=== PATIENT | male | born 1960 | race Caucasian/White ===

== ENCOUNTER 2018-03-29 09:58 | Outpatient (CLI) | payer OTHER, SELFPAY ==
[2018-03-29 13:03] LABS: Cholesterol 254 mg/dL (50-200); Glucose 94 mg/dL (70-100); HDL Cholesterol 45 mg/dL (40-60); LDL CHOLESTEROL 176 mg/dL (<100); Triglyceride 156 mg/dL (30-150)
== END 2018-03-29 10:18 ==
PROVIDERS: PCP Family Medicine; Visit Provider Family Medicine
DX: I25.10 Atherosclerotic heart disease of native coronary artery without angina pectoris (principal)
CPT/HCPCS: 36415; 80061; 82947; 83721

== ENCOUNTER 2018-04-17 09:12 | Outpatient (CLI) | payer OTHER, SELFPAY ==
--- NOTE | 2018-04-17 09:08 | DI.RAD_ITS ---
SYMPTOM/DIAGNOSIS: PAIN RIGHT HAND: Three views. No acute fracture or dislocation is seen. There is minimal spurring seen at the DIP joint of the right little finger suggesting osteoarthritis. The joint spaces otherwise appear well maintained. No radiopaque foreign bodies are seen in the soft tissues. IMPRESSION: Minimal osteoarthritis of the right hand.
== END 2018-04-17 09:32 ==
PROVIDERS: PCP Family Medicine; Visit Provider Physician Assistant Surgical
DX: M79.641 Pain in right hand (principal); M19.041 Primary osteoarthritis, right hand
CPT/HCPCS: 73130

== ENCOUNTER 2019-04-04 09:50 | Outpatient (CLI) | payer OTHER, SELFPAY ==
[2019-04-04 13:16] LABS: Calculated LDL 173 mg/dL (<100); Cholesterol 227 mg/dL (<200); HDL Cholesterol 35 mg/dL (40-60); Triglyceride 95 mg/dL (<150)
[2019-04-08 10:48] LABS: 1,25-Dihydroxyvitamin D 51 pg/mL (18-64)
== END 2019-04-04 10:10 ==
PROVIDERS: PCP Family Medicine; Visit Provider Family Medicine
DX: E55.9 Vitamin D deficiency, unspecified (principal); E78.5 Hyperlipidemia, unspecified
CPT/HCPCS: 36415; 80061; 82652

== ENCOUNTER 2020-04-29 01:51 | Outpatient (CLI) | payer OTHER, SELFPAY ==
--- NOTE | 2020-04-29 07:00 | DI.NM_ITS ---
APPROVED REPORT Exam: Exercise Treadmill Patient Location: Out-Patient Room/Bed: Stress Nurse: Camila Castañeda RN Ordering Provider:TEOFILO ESPINOZA, Contact Number: [phone] BMI: 30.53 Baseline Rhythm: Sinus Bradycardia Indications: SOB on exertion, chest pain Medical History Medical History: CAD s/p stent, hyperlipidemia, obesity, smoker (former) Cardiac Medications: aspirin, omeprazole, rosuvastatin Allergies: paroxetine Cardiac Risk Factors: CAD, hyperlipidemia, obesity, smoker (fromer), family hx Previous Cardiac Procedures: stent 2015 Pretest Chest Pain Characteristics: None Exercise History: Physically active Physical Disabilities: None Lung Sounds: Clear to auscultation Heart Sounds: Regular Stress Test Details Test: Exercise stress testing was performed using a [place] protocol. Rest Isotope: Tc-99m Sestamibi. Dose: 12.2 Date: 04/29/2020 Injection Time: 0900 Stress Isotope: Tc-99m Sestamibi. Dose: 37.0 Date: 04/29/2020 Injection Time: 1105 HR Resting HR Supine: 53 bpm Max Heart Rate (APMHR): 160.729450 bpm Resting HR Standin bpm Target HR (85% APMHR): 136.076418 bpm Max HR Achieved: 146 bpm % of APMHR: 91.25 Recovery HR: 65 bpm HR response to stress: Normal HR response to stress BP Resting BP Supine: 130/80 mmHg Resting BP Standin/86 mmHg Max BP: 176/72 mmHg Recovery BP: 140/78 mmHg BP response to stress: Normal blood pressure response to stress. ECG Resting ECG: Sinus Bradycardia Ectopy: None Stress ECG: Sinus Tachycardia ST Change: No significant ST segment changes noted Arrhythmia: None Recovery ECG: Sinus Rhythm Recovery ST Change: No significant ST segment changes noted Recovery Arrhythmia: Occasional PAC, PVCs Clinical Reason for Termination: Dyspnea, Fatigue Stress Symptoms: Dyspnea, General Fatigue Exercise duration: 13 min49 sec Highest Stage Reached: Stage 5: 5.0 mph at 18% grade. Exercise capacity: 14.48 METs Rate Pressure Product: [id number] Stress ECG Conclusion 1. The patient exercised for 14 minutes (14 METS). Heart rate and blood pressure response were robel l. Exercise was stopped due to fatigue. 2. There was no evidence of ischemia on the ECG portion of the exam. Stress Test Summary STAGE Time (mins) Speed (mph) Grade (%) HR BP SYMPTOMS METS Supine 53 130/80 Standing 53 132/86 1 3 1.7 10 68 140/80 4.6 2 6 2.5 12 88 158/72 7 3 9 3.4 14 105 SOB, O2 95% 10.2 4 12 4.2 16 128 12.9 5 15 5.0 18 143 17.2 1 min recovery 109 176/72 O2 97% 3 min recovery 65 162/70 symptoms resolved 6 min recovery 65 140/78 MPI Conclusion Ejection fraction with stress was 38%. There was global hypokinesis. There was no evidence of ischemia on the imaging portion of the exam. This represents a normal SPECT stress test. Radiologist Interpretation Radiologist Interpretation by: Rich Schmitt MD Interpretation Date/Time: 04/29/2020 16:59:31
== END 2020-04-29 02:11 ==
PROVIDERS: PCP Family Medicine; Visit Provider Family Medicine
DX: R07.9 Chest pain, unspecified (principal); R06.02 Shortness of breath; I25.10 Atherosclerotic heart disease of native coronary artery without angina pectoris; E78.5 Hyperlipidemia, unspecified; E66.9 Obesity, unspecified; Z87.891 Personal history of nicotine dependence
CPT/HCPCS: 78452; 93017

== ENCOUNTER 2020-05-28 02:29 | Outpatient (CLI) | payer OTHER, SELFPAY ==
[2020-05-28 08:54] LABS: Source Nasal/Nares
[2020-05-28 14:31] LABS: COVID-19 PCR Negative (Negative)
== END 2020-05-28 02:30 | disposition home or self-care (01) ==
LOC: LBO 02:29
PROVIDERS: Family Medicine; PCP Family Medicine; Visit Provider Surgery
DX: Z20.822 Contact with and (suspected) exposure to COVID-19 (principal); Z01.818 Encounter for other preprocedural examination
CPT/HCPCS: 87635

== ENCOUNTER 2020-05-31 04:41 | Outpatient (CLI) | payer OTHER, SELFPAY ==
[2020-05-31] MEDS: Albuterol HFA 18 GM 200 PUFF INH IH (09:00)
[2020-05-31] MEDS: Inhaler, Assist Device 1 EACH MC (09:00)
--- NOTE | 2020-06-02 08:16 | W.PFT ---
Date of service: 05/31/20 Time of Service: 08:08 Pulmonary Function Test Result Interpretation Spirometry: No evidence of obstructive airways disease, no bronchodilator response Lung Volumes: No restriction Diffusion Capacity: Normal Airway Pressure: Normal Impression Normal pulmonary function study Clinical Correlation therefore is recommended.
== END 2020-05-31 04:42 | disposition home or self-care (01) ==
LOC: RT 04:41
PROVIDERS: PCP Family Medicine; Visit Provider Family Medicine
DX: R06.02 Shortness of breath (principal); R06.09 Other forms of dyspnea; Z87.891 Personal history of nicotine dependence
CPT/HCPCS: 94060; 94726; 94729

== ENCOUNTER 2020-06-02 06:07 | Day surgery (SDC) | payer OTHER, SELFPAY ==
--- NOTE | 2020-06-02 06:28 | ROE_ITS ---
Date of service: 06/02/20 Time of Service: 08:38 Operative Note Operative Note DATE OF PROCEDURE: 06/02/20 PRE-OP DIAGNOSIS: Right inguinal hernia POST-OP DIAGNOSIS: same (Right direct inguinal hernia) PROCEDURE: Right inguinal hernia repair with mesh SURGEON: Jenna Dennis VISUAL SPECIALIST: Becky Santos ANESTHESIA TYPE: Local By Surgeon, General LMA/ETT (ASA 3/ Haris Tucker CRNA) and Primary Nerve Block Refer to Anesthesia Record ESTIMATED BLOOD LOSS: 15 PATHOLOGY: none sent COMPLICATIONS: None Patient was transported to: PACU Patient's condition: stable Implants: BARD Mesh LOT: [id number] REF: [id number] EXP: 2023-10-24 Indications: Mr. Marie is a pleasant 60-year-old gentleman who is here today to discuss a right inguinal hernia repair. He started noticing it in February when he started playing hockey again. He has had a left inguinal hernia repaired about 10 years ago. He has no chest pain while ice skating but does have some shortness of breath when walking uphill. The symptoms are similar to when he had his last stent placed in 2016. He is seeing his primary care physician today so I will wait for him to work this up. We did review the surgery in detail using a pamphlet. We reviewed risks and benefits. There is no urgency to the repair at this time. We discussed what to look for for symptoms of incarceration or strangulation. The patient would like to schedule this in May sometime when hockey season is over and its not quite time for gardening. Risks, benefits and complications have been reviewed. Complications include but are not limited to bleeding, infection, injury to vas, vessels and nerves, injury to bowel and adverse reaction to medications. Questions were entertained and answered to their satisfaction and they wished to proceed. COVID-19 testing explained to the patient. Reason for test reviewed. Quarantine per state requirements reviewed with patient. Patient understands and agrees to testing. Proceed with right inguinal hernia repair with mesh Findings: Large direct inguinal hernia Procedure Description: After informed concent was obtained the patient was taken to the operating room and placed in a supine position. Monitors and SCDs were applied and a timeout was done. The patient's name, date of , procedure type, procedure site, allergies to medications, preoperative antib iotic, and DVT prophylaxis were all reviewed. Fire risk was assessed. Next anesthesia did a tap block on the right side under ultrasound guidance. Please see their separate dictation. Once anesthesia was done the abdomen was prepped and draped in a sterile surgical fashion. 1% lidocaine was injected into the dermis in the right lower quadrant. An incision was made with a 10 blade in the right lower quadrant. Dissection was done with cautery through the subcutaneous tissues and Batool's fascia down to the external oblique fascia. The external ring was identified and the external oblique fascia was opened sharply through the external ring. The cut fascia was grasped with hemostats the cord structures were identified and a Oswald drain was placed around them. The cremasteric muscle was dissected away from the cord structures using both cautery and blunt dissection. There was a fluid filled sac identified and removed from the cord structures using blunt dissection. There was no true hernia sac. There was a large direct hernia. The ilioinguinal nerve was identified and cut. A 3 x 6 piece of mesh was then cut to size and attached to the lacunar ligament using a 2-0 Prolene double armed suture. The mesh was secured laterally and medially with a 2-0 Prolene, with a running suture. The tails of the mesh were wrapped around the cord structures effectively cinching down the internal ring. Once the mesh was secured the tissues were irrigated with some normal saline. No bleeding was identified. The external oblique fascia was reapproximated using 2-0 Vicryl running suture. The Batool's fascia was reapproximated using interrupted 3-0 Vicryl. The dermis was reapproximated with a running 4-0 Vicryl. The skin was cleaned and dried and skin affix was applied. The patient was woken up and taken back to recovery in stable condition. There were no immediate complications. Sponge, instrument and needle counts were correct at the end of the case x2.
--- NOTE | 2020-06-02 06:28 | HPE_ITS ---
Assessment and Plan Assessment and plan (1) Right groin hernia: Status: Acute Assessment and plan: Mr. Marie is a pleasant 60-year-old gentleman who is here today to discuss a right inguinal hernia repair. He started noticing it in February when he started playing hockey again. He has had a left inguinal hernia repaired about 10 years ago. He has no chest pain while ice skating but does have some shortness of breath when walking uphill. The symptoms are similar to when he had his last stent placed in 2016. He is seeing his primary care physician today so I will wait for him to work this up. We did review the surgery in detail using a pamphlet. We reviewed risks and benefits. There is no urgency to the repair at this time. We discussed what to look for for symptoms of incarceration or strangulation. The patient would like to schedule this in May sometime when hockey season is over and its not quite time for gardening. Risks, benefits and complications have been reviewed. Complications include but are not limited to bleeding, infection, injury to vas, vessels and nerves, injury to bowel and adverse reaction to medications. Questions were entertained and answered to their satisfaction and they wished to proceed. COVID-19 testing explained to the patient. Reason for test reviewed. Quarantine per state requirements reviewed with patient. Patient understands and agrees to testing. Proceed with right inguinal hernia repair with mesh History of Present Illness Narrative: Mr. Marie is a pleasant 60-year-old gentleman who is here today to discuss possible right inguinal hernia repair. He noticed some discomfort in February while playing hockey. The pain is tolerable. There are certain movements that hurt more. The pain does radiate across his lower abdomen. He denies any any changes in bowel habits. He does have some difficulty urinating. He states it is hard to get a stream going and then he also has to go to the bathroom multiple times. He wonders whether this is also due to his hernia. We discussed that most likely this is due to benign prostatic hypertrophy. He does have a doctor's appointment today with his primary care physician for an annual exam. His past medical history is significant for cardiac disease status post stent placement in 2016. He denies any chest pain with playing hockey. He does note some shortness of breath when he carries buckets up a hill at his house. This is a similar symptom than when he had to have his last stent placed. Again he will mention this to his primary care physician. There have been no changes in his health since he was seen in March Review of Systems Cardiovascular Cardiovascular: Denies chest pain, Denies chest pain at rest, Denies irregular heart rhythm, Denies dyspnea and Denies dyspnea on exertion Respiratory Respiratory: Denies cough, Denies dyspnea and Denies dyspnea on exertion Gastrointestinal Gastrointestinal: Reports as per HPI Genitourinary Genitourinary: Denies dysuria, Denies urinary incontinence and Denies urinary urgency Musculoskeletal Musculoskeletal: Reports system reviewed and no additional complaints, except as documented Integumentary/Breasts Skin/Breast: Reports system reviewed and no additional complaints, except as documented Neurologic Neurologic: Reports system reviewed and no additional complaints, except as documented Endocrine Endocrine: Reports system reviewed and no additional complaints, except as documented Hematologic/Lymphatic Hematologic/Lymphatic: Denies easy bruising and Denies lymphadenopathy COUNT INCLUDES THE [facility] Medical History CAD (coronary artery disease) History of fracture of finger Hyperlipidemia Right groin hernia SOB (shortness of breath) Vitamin D deficiency (03/23/17) 11.6 03/2015 Surgical History BROKEN FINGER 04/11 Colonoscopy - MAC (04/27/17) Coronary Stent (06/16/15) H/O inguinal hernia repair L side Family History Mother No problems noted. Father No problems noted. Sister No problems noted. Brother No problems noted. Maternal Grandfather Diabetes Sister No problems noted. Brother No problems noted. Son No problems noted. Son No problems noted. Son No problems noted. Daughter No problems noted. Social History Smoking/Tobacco Use Status: Former Tobacco Use Quit Date: 02/26/15 Tobacco: How many years used: 40 Smoking risk assessment performed?: Yes Alcohol Intake: current Alcohol Intake frequency: 0-2 drinks per day Drug use: Daily Substance use type: marijuana Caregiver/Support person: No Household members: spouse and children Housing: house Communication Needs: None Do you need help understanding health information?: Never Pets and animals: Yes Pets and animals: cat(s) and dog(s) Do you think of yourself as: straight/heterosexual Current gender identity: male What is your relationship status?: How often do you talk on the phone with friends or family?: three or more times per week How often do you get together with friends or relatives?: three or more times per week How often do you attend christian or orthodoxy services?: decline to answer Do you belong to any clubs or organized social groups?: no Panel score (0-1 are the most socially isolated patients): 2 What type of physical activity do you participate in: bicycling and other Details: ice skating Duration: 60-90 minutes/day Frequency: 3-4 times per week Megan/Hinduism: None Special megan needs: No Seatbelt use: always Helmet use: Yes Helmet use: always Drive intox or ride w/intox driver's license reviewing officer: No Do you feel safe at home: Yes Do you feel safe in your relationship?: Yes Meds Home Medications and Allergies Allergies Allergy/AdvReac Type Severity Reaction Status Date / Time paroxetine [Paroxetine] AdvReac Intermediate sexual Verified 06/01/20 12:09 dysfunction Home Medications Medication Instructions Recorded Confirmed Type esomeprazole magnesium 20 mg PO DAILY 03/23/17 06/02/20 History nitroglycerin 0.4 mg sublingual 0.4 mg SUBLINGUAL q 5 mins prn #25 03/29/18 06/02/20 Rx tablet tab-cap sildenafil (pulm.hypertension) 20 20 - 100 mg PO DAILY PRN #30 tab 03/29/18 06/02/20 Rx mg tablet rosuvastatin 20 mg tablet 20 mg PO DAILY #90 tab 04/23/20 06/02/20 Rx ibuprofen 400 mg PO Q6H PRN 06/02/20 06/02/20 History Exam Const General: comfortable and no acute distress HENMT Head: normocephalic and atraumatic Resp Effort & Inspection: normal respiratory effort Auscultation: clear to auscultation bilaterally Cardio Rate: regular rate Rhythm: regular rhythm
--- NOTE | 2020-06-02 06:31 | W.PM.DSUDISC ---
Discharge Plan Disposition Patient Disposition: HOME Condition: Good Discharge Details Reason For Visit: Right inguinal hernia repair Attending Provider: Jenna Dennis Primary Care Provider: Remi Boyle Home Meds and New Rx's Prescriptions: New oxycodone 5 mg tablet 5 mg PO Q6H PRNQty: 10 RF: 0 Continued sildenafil (pulm.hypertension) 20 mg tablet 20 - 100 mg PO DAILY PRN (Reason: sexual activity) Qty: 30 RF: 5 nitroglycerin 0.4 mg tablet, sublingual 0.4 mg Sublingual q 5 mins prn Qty: 25 RF: 0 esomeprazole magnesium 20 MG capsule,delayed release(DR/EC) 20 mg PO DAILY RF: 0 rosuvastatin 20 mg tablet 20 mg PO DAILY Qty: 90 RF: 3 ibuprofen 200 mg Tablet 400 mg PO Q6H PRNRF: 0 Discharge Instructions Instructions: Inguinal Hernia Repair (DC) Additional Instructions: Activity at Home after surgery: 1. Make sure you walk outside at least 4 times per day 2. You should be able to climb a flight of stairs 3. No driving while in pain or taking pain medications 4. No strenuous activity or heavy lifting for 4 weeks (open surgery) Diet, Nutrition, & wound healin. Avoid alcohol until after you are recovered from your surgery 2. Make sure to eat plenty of lean protein (meat, fish, eggs, cottage cheese, beans) 3. Eat a variety of fruits and vegetables. Eat plenty of high fiber foods to avoid constipation. 4. Drink plenty of liquids to stay hydrated and avoid constipation Pain Medications: 1. Tylenol 650mg every 6 hours as needed and Ibuprofen 600 mg every 6 hours as needed. You may alternate between the 2 medications every 3 hours 2. If a narcotic has been prescribed take as directed only for breakthrough pain For Constipation: 1. Take Milk of Magnesia or MiraLax as needed for constipation Other: 1. You may shower daily. Do not scrub the incisions 2. Do not soak the incisions for 1 week 3. You may alternate ice and heat as needed for pain and swelling Wound Care: 1. Keep the incisions clean and dry Please call our office if you develop: 1. Fevers >101.5 2. Nausea or Vomiting 3. Worsening pain 4. Redness and thick discharge from the wounds If after hours please call the Hospital at and ask to speak to the on-call surgeon Referrals: Jenna Dennis MD [ [facility] STAFF PHYSICIAN] - 06/15/20 8:00 am Activity:: No lifting >20 lb x 4 weeks Shower/Bathe:: 24 hours Diet:: As Tolerated DS: Diagnosis Discharge Diagnosis (1) Right groin hernia: Status: Acute
[2020-06-02] MEDS: Celecoxib 200 MG CAP PO (06:39)
[2020-06-02] MEDS: Acetaminophen 500 MG TAB 1000 MG PO (06:39)
[2020-06-02 06:46] VITALS: BP 129/82; PULSE 55; RESP 16; TEMP 36.6; O2SAT 97
[2020-06-02] MEDS: Lactated Ringers 1,000 ML 80 ML IV (07:10)
[2020-06-02] MEDS: ceFAZolin 2 GM/50 ML BAG IVPB (07:31)
[2020-06-02] MEDS: Bupivacaine 0.25% Pres-Free 30 ML VIAL ×2 (07:41→08:40)
[2020-06-02] MEDS: Bupivacaine LIPOSOME/PF 133 MG/10 ML VIAL IJ ×2 (07:41→08:40)
[2020-06-02] MEDS: Lidocaine 1% Multi-Dose 50 ML VIAL (07:53)
[2020-06-02 08:44] VITALS: BP 116/57; PULSE 51; RESP 17; TEMP 36.1; O2SAT 97
[2020-06-02 08:49] VITALS: BP 115/65; PULSE 49; RESP 16; TEMP 36.1; O2SAT 98
[2020-06-02 08:54] VITALS: BP 136/73; PULSE 49; RESP 16; TEMP 36.1; O2SAT 97
[2020-06-02 09:05] VITALS: BP 142/78; PULSE 52; RESP 13; TEMP 36.1; O2SAT 98
[2020-06-02 09:50] VITALS: BP 132/79; PULSE 52; RESP 16; TEMP 36.1; O2SAT 99
== END 2020-06-02 10:55 | disposition home or self-care (01) ==
PROVIDERS: PCP Family Medicine; Visit Provider Surgery
PROC: (CPT 49505; principal; 2020-06-02 07:30)
DX: K40.90 Unilateral inguinal hernia, without obstruction or gangrene, not specified as recurrent (principal); I25.10 Atherosclerotic heart disease of native coronary artery without angina pectoris; E78.5 Hyperlipidemia, unspecified; E55.9 Vitamin D deficiency, unspecified
CPT/HCPCS: 49505; NC; C1781; J0690; J1100; J1885; J2405; J2704

== ENCOUNTER 2020-06-18 02:43 | Outpatient (CLI) | payer OTHER, SELFPAY ==
[2020-06-18 07:56] LABS: HCT 42.5 % (40.0-50.0); HGB 14.4 g/dL (13.5-17.5); MCH 31.6 pg (27.0-33.0); MCHC 33.9 % (32.0-36.0); MCV 93.4 fL (80-95); MPV 9.1 fL (8.0-11.0); Platelet Count 264 10^3/uL (130-400); RBC 4.55 10^6/uL (4.36-5.78); RDW 11.9 % (11.8-14.1); RDW-SD 40.9 fL
[2020-06-18 08:46] LABS: Anion Gap 7.7 mmol/L (3-11); BUN 20 mg/dL (7-18); CO2 27.3 mmol/L (21.0-32.0); CREATININE 1.2 mg/dL (0.70-1.30); Calculated LDL 91 mg/dL (<100); Chloride 105 mmol/L (98-107); Cholesterol 174 mg/dL (<200); Glucose 102 mg/dL (74-106); HDL Cholesterol 53 mg/dL (40-60); Potassium 4.4 mmol/L (3.5-5.1); Sodium 140 mmol/L (136-145); Triglyceride 151 mg/dL (<150)
== END 2020-06-18 02:44 | disposition home or self-care (01) ==
LOC: LBO 02:50
PROVIDERS: PCP Family Medicine; Visit Provider Family Medicine
DX: D64.9 Anemia, unspecified (principal); E78.5 Hyperlipidemia, unspecified; E87.1 Hypo-osmolality and hyponatremia
CPT/HCPCS: 36415; 80048; 80061; 85027

== ENCOUNTER → 2021-12-23 00:40 | Outpatient (CLI) | payer OTHER, SELFPAY ==
--- NOTE | 2021-12-23 07:30 | DI.RAD_ITS ---
Exam(s) XR ANKLE LT COMPLETE EXAM: XR ANKLE LT COMPLETE CLINICAL HISTORY: left ankle pain,m25.572 TECHNIQUE: 2D digital imaging was performed of the left ankle. Three images were obtained. AP, lat eral and oblique views were obtained. COMPARISON: No exams were available for comparison FINDINGS: BONES: No acute fracture is present. No bony destructive lesion is seen. There is a small lucency in the medial aspect of the talar dome which may represent an osteochondral defect. MRI may be obtained for further evaluation. JOINTS:The ankle mortise is normally aligned. SOFT TISSUE: Vascular calcifications are present. IMPRESSION: No acute abnormality. DATA REPOSITORY: RADIATION DOSE DELIVERED:
== END ==
PROVIDERS: PCP Family Medicine; Visit Provider Emergency Medicine
DX: M25.572 Pain in left ankle and joints of left foot (principal)
CPT/HCPCS: 73610

== ENCOUNTER 2022-02-24 13:38 | Outpatient (CLI) | payer OTHER, SELFPAY | END 2022-02-24 13:39 | disposition home or self-care (01) | LOC: DI.CARD 13:39 | PROVIDERS: PCP Family Medicine; Visit Provider Internal Medicine Cardiovascular Disease | CPT/HCPCS: 93010 ==

== ENCOUNTER 2022-03-03 09:56 | Outpatient (CLI) | payer OTHER, SELFPAY ==
--- NOTE | 2022-03-03 09:25 | DI.RAD_ITS ---
Exam(s) XR FINGER RT MIDDLE EXAM: XR FINGER RT MIDDLE CLINICAL HISTORY: f/u RMF pain. TECHNIQUE: 2D digital imaging was performed. Three views. COMPARISON: No exams were available for comparison FINDINGS: BONES: No acute fracture is present. No bony destructive lesion is seen. JOINTS: No dislocation present. SOFT TISSUE: Normal. IMPRESSION: No evidence of acute fracture, dislocation, or subluxation. DATA REPOSITORY: RADIATION DOSE DELIVERED:
--- NOTE | 2022-03-03 09:30 | DI.RAD_ITS ---
Exam(s) XR ANKLE RT COMPLETE EXAM: XR ANKLE RT COMPLETE CLINICAL HISTORY: f/u R ankle pain, ?OCD or loose fragment. TECHNIQUE: 2D digital imaging was performed. Three views. COMPARISON: No exams were available for comparison FINDINGS: BONES: No acute fracture is present. No bony destructive lesion is seen. There is a small cyst in th e medial talar dome without visible disruption of the overlying cortex. Tiny heel spur. JOINTS: The ankle mortise is normally aligned. No joint space narrowing. SOFT TISSUE: Normal. IMPRESSION: Small cystic lesion in the medial talar dome without visible overlying cortical disruption. DATA REPOSITORY: RADIATION DOSE DELIVERED:
== END 2022-03-03 09:57 | disposition home or self-care (01) ==
LOC: DIORS 09:57
PROVIDERS: PCP Family Medicine; Referring Provider Family Medicine; Visit Provider Student in an Organized Health Care Education/Training Program
DX: M79.644 Pain in right finger(s) (principal); M25.571 Pain in right ankle and joints of right foot
CPT/HCPCS: 73140; 73610

== ENCOUNTER 2022-03-17 01:25 | Outpatient (CLI) | payer OTHER, SELFPAY ==
[2022-03-17 08:28] LABS: Calculated LDL 86 mg/dL (<100); Cholesterol 164 mg/dL (<200); HDL Cholesterol 45 mg/dL (40-60); Triglyceride 167 mg/dL (<150)
[2022-03-17 20:42] LABS: PSA, Diagnostic 3.4 ng/mL (<=4.5)
== END 2022-03-17 01:26 | disposition home or self-care (01) ==
PROVIDERS: PCP Family Medicine; Visit Provider Emergency Medicine
DX: E78.5 Hyperlipidemia, unspecified (principal); C61 Malignant neoplasm of prostate; N40.1 Benign prostatic hyperplasia with lower urinary tract symptoms
CPT/HCPCS: 36415; 80061; 84153

== ENCOUNTER 2022-04-07 00:52 | Outpatient (CLI) | payer OTHER, SELFPAY ==
--- NOTE | 2022-04-07 08:09 | DI.MRI_ITS ---
Exam(s) MR LOWER JOINT RT WO EXAM: MR LOWER JOINT RT WO CLINICAL HISTORY: RT ANKLE PAIN, M25.571 TECHNIQUE: Multiplanar multisequence MRI was performed without intravenous contrast. COMPARISON: Right ankle x-rays performed 03/03/2022 FINDINGS: SKIN: No evidence of ulcer nor subcutaneous tract. BONES/JOINTS: There is no evidence of ankle joint effusion. However, there is significant findings i n the medial aspect of the talar dome. At this level there is a degenerative subarticular cyst which measures 6 x 4 by 6 millimeters with surrounding subarticular bone edema at this level. There is si gnificant focal cartilage thinning over this area in the talar dome. There is no abnormal signal in the mid-lateral aspect of the talar dome nor in the tibial plafond nor in the malleoli nor in the rem ainder of the bones of the ankle and metatarsal bases. Ankle mortise is maintained. There is no par a-articular ganglion. No evidence of osseous tarsal coalition. LIGAMENTS: The anterior and posterior tibiofibular and calcaneofibular ligaments are intact. The ante rior and posterior talofibular ligaments are intact. The deltoid ligament is intact. SINUS TARSI: There is no loss of the normal fat signal in this space. Interosseous ligament is intac t. There is no evidence of sinus tarsi ganglion cyst. ANTEROLATERAL GUTTER:There is no abnormal signal/abnormal tissue in this space. MUSCULOTENDINOUS STRUCTURES: Achilles tendon: Unremarkable. No evidence of tear nor tendinitis/tendinosis. Plantar fascia: Unremarkable. No evidence of tear, abnormal thickening, nor abnormal nodularity. The re is no inferior calcaneal spur. Anterior Extensor tendons: There is fusiform thickening of the tibialis anterior tendon anterior to t he ankle, exhibiting maximum thickness of 7 millimeters. There is no evidence of abnormal signal-tea r within the tendon. Other extensor tendons exhibit normal thickness and no abnormal signal. Medial Tendons: Posterior Tibialis: No abnormal signal. No tear. Mild tenosynovitis. Flexor Digitorum longus: Unremarkable. No tear or tenosynovitis evident. Flexor Hallicus longus: Unremarkable. No tear or tenosynovitis evident. Lateral Tendons: Peroneus longus: Unremarkable. No tear nor tenosynovitis evident. Peroneus brevis:There is splitting of the pronator is brevis tendon on the lateral aspect of the ankl e but without acute tear signal. Main aspect still inserts upon the base of the 5th metatarsal. SOFT TISSUES: Unremarkable. OTHER FINDINGS: None. IMPRESSION: 1. There is a degenerative subarticular cyst measuring 6 x 6 millimeters in the medial aspect of the talar dome with this surrounding bone edema. There is a focus of overlying full-thickness cartilage thinning measuring 3 x 2 millimeters. There is no abnormal signal in the adjacent medial malleolus a nd tibial plafond nor in the lateral aspect of the talar dome. Also no ankle joint effusion nor para -articular ganglion.. 2. There is fusiform thickening of the most medial of the extensor tendons which is tibialis anterior . Thickness is 7 millimeters anterior to the ankle joint. However, there is no evidence of tendinit is nor tear signal within this thickened tendon. 3. There is mild tenosynovitis of the posterior tibial tendon. No tear of this structure. 4. Splitting of the peroneus brevis is noted but without acute tear of this structure evident. Irvin ni is longus appears unremarkable. DATA REPOSITORY:
--- NOTE | 2022-04-07 08:09 | DI.MRI_ITS ---
Exam(s) MR LOWER JOINT LT WO EXAM: MR LOWER JOINT LT WO CLINICAL HISTORY: LT ANKLE PAIN, M25.572 TECHNIQUE: Multiplanar multisequence MRI was performed without intravenous contrast. COMPARISON: CR XR ANKLE LT COMPLETE from 12/23/2021 MR MR LOWER JOINT RT WO from 04/07/2022 FINDINGS: SKIN: No evidence of ulcer nor subcutaneous tract. BONES/JOINTS: The main osseous finding here is similar to the opposite side. There is a E subarticul ar degenerative cyst in the medial aspect of the talar dome which measures 9 mm x 6 mm wide by 9 mill imeter AP and exhibits surrounding bone edema. There is some loss of overlying cartilage at this lev el in the medial talar dome. Lateral talar dome appears unremarkable and there is no abnormal signal in the overlying tibial plafond nor in the malleoli. There is no ankle joint effusion and no eviden ce of para-articular ganglion at this level nor elsewhere in the ankle. The ankle mortise is maint ained. No evidence of osseous tarsal coalition. There are no other areas of intraosseous signal abnormality in the ankle and proximal-mid foot, inclu ding the metatarsal bases. LIGAMENTS: The anterior and posterior tibiofibular and calcaneofibular ligaments are intact. The ante rior and posterior talofibular ligaments are intact. The deltoid ligament is intact. SINUS TARSI: There is no loss of the normal fat signal in this space. Interosseous ligament is intac t. There is no evidence of sinus tarsi ganglion cyst. ANTEROLATERAL GUTTER:There is no abnormal signal/abnormal tissue in this space. MUSCULOTENDINOUS STRUCTURES: Achilles tendon: Unremarkable. No evidence of tear nor tendinitis/tendinosis. Plantar fascia: Unremarkable. No evidence of tear, abnormal thickening, nor abnormal nodularity. Anterior Extensor tendons: Unremarkable. There is no fusiform thickening of the tibialis anterior ten don, as is seen on the opposite side. Medial Tendons: Posterior Tibialis: Unremarkable. No tear or tenosynovitis evident. Flexor Digitorum longus: Unremarkable. No tear or tenosynovitis evident. Flexor Hallicus longus: Unremarkable. No tear or tenosynovitis evident. Lateral Tendons: Peroneus longus: Unremarkable. No tear nor tenosynovitis evident. Peroneus brevis:Unremarkable. No tear nor tenosynovitis evident. There is splitting of the peroneus brevis, identical to the opposite side. This is most probably developmental. There is no abnormal s ignal at this level. SOFT TISSUES: Unremarkable. OTHER FINDINGS: None. IMPRESSION: 1. 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 No significant ankle joint effusion nor para-articu lar ganglia on. In similar fashion to the opposite side there is no intraosseous signal abnormality in the overlying tibial plafond nor within the malleoli and there is no bone edema evident in the oth er bones of the proximal and mid foot down to and including the metatarsal bases. 2. There is no thickening of the tibialis anterior tendon, as is evident in the extensor group on the opposite side. DATA REPOSITORY:
== END 2022-04-07 01:12 ==
PROVIDERS: PCP Family Medicine; Visit Provider Student in an Organized Health Care Education/Training Program
DX: M65.861 Other synovitis and tenosynovitis, right lower leg (principal); R93.7 Abnormal findings on diagnostic imaging of other parts of musculoskeletal system
CPT/HCPCS: 73721

== ENCOUNTER 2022-06-13 14:14 | Outpatient (CLI) | payer OTHER, SELFPAY | END 2022-06-13 14:15 | disposition home or self-care (01) | LOC: CARDOPNVT 14:14 | PROVIDERS: PCP Family Medicine; Visit Provider Family Medicine | DX: G45.9 Transient cerebral ischemic attack, unspecified (principal) | CPT/HCPCS: 93270 ==

== ENCOUNTER 2022-06-21 02:58 | Outpatient (CLI) | payer OTHER, SELFPAY ==
[2022-06-21 13:24] LABS: ALT 30 U/L (16-63); AST 20 U/L (15-37); Albumin 3.9 g/dL (3.4-5.0); Alkaline Phosphatase 47 U/L (46-116); Anion Gap 6.3 mmol/L (3-11); BUN 20 mg/dL (7-18); Bilirubin, Total 0.3 mg/dL (0.2-1.0); CO2 26.7 mmol/L (21.0-32.0); CREATININE 1.2 mg/dL (0.70-1.30); Calcium 9.3 mg/dL (8.5-10.1); Chloride 104 mmol/L (98-107); Estimated GFR 68.38 (mL/min/1.73m2); Glucose 121 mg/dL (74-106); Potassium 4.2 mmol/L (3.5-5.1); Sodium 137 mmol/L (136-145); Total Protein 7.7 g/dL (6.4-8.2)
[2022-06-21 13:26] LABS: Hemoglobin A1C 5.5 % (<5.7)
[2022-06-22 10:55] LABS: PSA, Screening 3.2 ng/mL (<=4.5)
== END 2022-06-21 02:59 | disposition home or self-care (01) ==
PROVIDERS: Family Medicine; PCP Family Medicine; Visit Provider Psychiatry & Neurology Neurology
DX: Z00.00 Encounter for general adult medical examination without abnormal findings; G45.9 Transient cerebral ischemic attack, unspecified; R73.9 Hyperglycemia, unspecified
CPT/HCPCS: 36415; 80053; 84153; 83036

== ENCOUNTER 2022-06-29 00:40 | Outpatient (CLI) | payer OTHER, SELFPAY ==
--- NOTE | 2022-06-29 08:30 | DI.MRI_ITS ---
Exam(s) MR ANGIO BRAIN WO CLINICAL HISTORY: TIA,G45.9. TECHNIQUE: Multiplanar multisequence MRA of the brain was performed. COMPARISON: MR MR BRAIN WO from 06/29/2022 FINDINGS: Carotid Arteries: No aneurysm, occlusion or significant stenosis. Anterior Cerebral Arteries: Right: No aneurysm, occlusion or significant stenosis. Left: No aneurysm, occlusion or significant stenosis. Middle Cerebral Arteries: Right: No aneurysm, occlusion or significant stenosis. Left: No aneurysm, occlusion or significant stenosis. Posterior Cerebral Arteries: There is origin of both orthopedic specialist. Right: No aneurysm, occlusion or significant stenosis. Left: No aneurysm, occlusion or significant stenosis. Vertebral Arteries: Right: No aneurysm, occlusion or significant stenosis. Left: No aneurysm, occlusion or significant stenosis. Basilar Artery: No aneurysm, occlusion or significant stenosis. IMPRESSION: Normal MRA examination of the [employer] [facility] [place]. DATA REPOSITORY:
--- NOTE | 2022-06-29 08:30 | DI.MRI_ITS ---
Exam(s) MR BRAIN WO EXAM: MR BRAIN WO CLINICAL HISTORY: TIA,G45.9 TECHNIQUE: Multiplanar multisequence MRI of the brain was performed. COMPARISON: CT HEAD WITH/WITHOUT CONTRAST from 12/05/2013 FINDINGS: VENTRICLES AND EXTRA AXIAL SPACES: Normal in size and morphology for the patient's age. MIDLINE SHIFT: None. CEREBRAL PARENCHYMA: No focus of restricted diffusion to suggest acute infarct. No space-occupying le natalee identified. HEMORRHAGE: None. BRAINSTEM/CEREBELLUM: Normal. CALVARIUM: Normal. VISUALIZED PARANASAL SINUSES/MASTOIDS:There is opacification of the right frontal sinus. There may b e visualized paranasal sinuses are clear as are the mastoid air cells. [place]: Normal flow void. PITUITARY GLAND: Unremarkable. OTHER FINDINGS: None. IMPRESSION: 1. No evidence of an acute infarct. 2. Mild frontal sinusitis. DATA REPOSITORY:
--- NOTE | 2022-06-29 08:30 | DI.MRI_ITS ---
Exam(s) MR ANGIO NECK WO EXAM: MR ANGIO NECK WO CLINICAL HISTORY: TIA,645.9. TECHNIQUE: Multiplanar multisequence MRA of the Neck was performed. COMPARISON: MR MR ANGIO BRAIN WO from 06/29/2022 FINDINGS: There is patient motion artifact. Common Carotid: Right: No dissection, occlusion or significant stenosis. Left: No dissection, occlusion or significant stenosis. External Carotid: Right: No evidence of occlusion or significant stenosis. Left: No evidence of occlusion or significant stenosis. Internal Carotid: Right: No dissection, occlusion or significant stenosis. Left: No dissection, occlusion or significant stenosis. Vertebral Artery: Right: No dissection, occlusion or significant stenosis. Left: No dissection, occlusion or significant stenosis. The visualized paraspinal soft tissues are unremarkable. IMPRESSION: No evidence of dissection, occlusion or significant stenosis. DATA REPOSITORY:
== END 2022-06-29 01:00 ==
LOC: DI 00:40
PROVIDERS: PCP Family Medicine; Visit Provider Family Medicine
DX: G45.9 Transient cerebral ischemic attack, unspecified (principal)
CPT/HCPCS: 70544; 70547; 70551

== ENCOUNTER 2022-07-18 12:44 | Outpatient (CLI) | payer OTHER, SELFPAY ==
--- NOTE | 2022-07-18 12:45 | W.CARDEVENT ---
Date of service: 07/18/22 Time of Service: 12:45 Cardiac Event Recorder Referring Provider:: Carolina Leonardo Indications:: Transient ischemic attack Cardiac Event Note: This is a 30-day cardiac event monitor Rhythm throughout was sinus with an average heart rate of 67. Minimum was 54, maximum 110 There was no atrial fibrillation, no high-grade AV block, no pauses greater than 3 seconds There were rare premature ventricular contractions. There was one 5 beat run of nonsustained ventricular tachycardia
== END 2022-07-18 12:45 | disposition home or self-care (01) ==
LOC: CARDOPNVT 12:44
PROVIDERS: PCP Family Medicine; Visit Provider Internal Medicine Cardiovascular Disease
DX: G45.9 Transient cerebral ischemic attack, unspecified (principal); I47.20 Ventricular tachycardia, unspecified

== ENCOUNTER 2023-11-28 23:14 | Outpatient (REF) | payer OTHER, SELFPAY ==
[2023-11-29 00:07] LABS: Prothrombin Time 10.3 sec (9.1-11.1)
== END 2023-11-28 23:15 | disposition home or self-care (01) ==
LOC: LBN 23:14
PROVIDERS: PCP Family Medicine; Visit Provider Emergency Medicine
DX: R07.9 Chest pain, unspecified (principal)
CPT/HCPCS: 85610

== ENCOUNTER 2023-12-26 08:50 | Outpatient (CLI) | payer OTHER, SELFPAY ==
[2023-12-26 12:51] LABS: Anion Gap 8.6 mmol/L (3-11); BUN 15 mg/dL (7-18); CO2 27.4 mmol/L (21.0-32.0); CREATININE 1.1 mg/dL (0.70-1.30); Calcium 9.7 mg/dL (8.5-10.1); Calculated LDL 82 mg/dL (<100); Chloride 107 mmol/L (98-107); Cholesterol 157 mg/dL (<200); Estimated GFR 75.43 (mL/min/1.73m2); Glucose 86 mg/dL (74-106); HDL Cholesterol 47 mg/dL (40-60); Potassium 4.4 mmol/L (3.5-5.1); Sodium 143 mmol/L (136-145); Triglyceride 142 mg/dL (<150)
[2023-12-26 17:57] LABS: PSA, Screening 4.1 ng/mL (<=4.5)
== END 2023-12-26 08:51 | disposition home or self-care (01) ==
LOC: LOS 08:50
PROVIDERS: PCP Family Medicine; Referring Provider Family Medicine; Visit Provider Family Medicine
DX: Z12.5 Encounter for screening for malignant neoplasm of prostate (principal); E78.5 Hyperlipidemia, unspecified; E87.1 Hypo-osmolality and hyponatremia; Z23 Encounter for immunization; M25.571 Pain in right ankle and joints of right foot; M25.572 Pain in left ankle and joints of left foot; R07.9 Chest pain, unspecified
CPT/HCPCS: 36415; 80048; 80061; 84153

== ENCOUNTER 2024-07-29 12:20 | Outpatient (CLI) | payer OTHER, SELFPAY | END 2024-07-29 12:21 | disposition home or self-care (01) | LOC: LBO 12:21 | PROVIDERS: PCP Family Medicine; Visit Provider Nurse Practitioner Gerontology | DX: R39.9 Unspecified symptoms and signs involving the genitourinary system (principal) | CPT/HCPCS: 36415; 84153 ==

== ENCOUNTER 2025-01-09 13:26 | Outpatient (CLI) | payer OTHER, SELFPAY ==
[2025-01-09 14:30] LABS: ALT 23 U/L (10-49); AST 30 U/L (<34); Albumin 4.5 g/dL (3.4-5.0); Alkaline Phosphatase 46 U/L (46-116); Anion Gap 8.3 mmol/L (3-11); BUN 18 mg/dL (9-23); Bilirubin, Total 0.30 mg/dL (0.2-1.2); CO2 26.7 mmol/L (20.0-31.0); Calcium 9.3 mg/dL (8.3-10.6); Chloride 108 mmol/L (98-107); Cholesterol 158 mg/dL (<200); Glucose 83 mg/dL (74-106); HDL Cholesterol 70 mg/dL (>40); Potassium 4.2 mmol/L (3.5-5.1); Sodium 143 mmol/L (136-145); Total Protein 7.4 g/dL (5.7-8.2)
[2025-01-09 14:33] LABS: Vitamin D 25 Total 23 ng/mL (30-100)
== END 2025-01-09 13:27 | disposition home or self-care (01) ==
PROVIDERS: PCP Family Medicine; Visit Provider Nurse Practitioner Family
DX: Z00.00 Encounter for general adult medical examination without abnormal findings (principal); I25.10 Atherosclerotic heart disease of native coronary artery without angina pectoris; E78.5 Hyperlipidemia, unspecified; E55.9 Vitamin D deficiency, unspecified; N40.0 Benign prostatic hyperplasia without lower urinary tract symptoms
CPT/HCPCS: 36415; 80053; 80061; 82306